=== PATIENT | male | born 1955 | race Caucasian/White ===

== ENCOUNTER 2021-12-07 08:07 | Outpatient (CLI) | payer MEDICARE, SELFPAY ==
[2021-12-07 16:30] LABS: Chloride* 106 mmol/L (96-114)
[2021-12-07 16:31] LABS: Potassium* 4.4 mmol/L (3.6-5.1); Sodium* 136 mmol/L (135-149)
[2021-12-07 16:33] LABS: Blood Urea Nitrogen* 25 mg/dL (7-30); Carbon Dioxide* 24 mmol/L (20-32); Cholesterol* 120 mg/dL (90-199); Creatinine* 1.2 mg/dL (0.5-1.5); Estimated Glomerular Filt Rate 67 ml/min
[2021-12-07 16:34] LABS: Calcium* 9.1 mg/dL (8.4-10.6); Glucose* 97 mg/dL (60-115); HDL Cholesterol* 54 mg/dL (>=40); LDL Cholesterol Calculated 53 mg/dL (<100); Triglycerides* 63 mg/dL (40-149)
[2021-12-07 17:05] LABS: PSA Diagnostic* 8.89 ng/mL (0.10-4.00)
== END 2021-12-07 08:08 | disposition home or self-care (01) ==
PROVIDERS: PCP Family Medicine; Visit Provider Family Medicine
DX: I10 Essential (primary) hypertension (principal); R97.20 Elevated prostate specific antigen [PSA]; Z13.6 Encounter for screening for cardiovascular disorders; Z13.0 Encounter for screening for diseases of the blood and blood-forming organs and certain disorders involving the immune mechanism
CPT/HCPCS: 80048; 80061; 84153

== ENCOUNTER 2022-04-16 16:32 | Emergency (ER) | payer MEDICARE, BC, SELFPAY ==
[2022-04-16] VITALS (17 sets, daily range): BP systolic 123–153; BP diastolic 71–93; PULSE 60–83; RESP 14–20; TEMP 36.7; O2SAT 93–98; BMI 32.3
--- NOTE | 2022-04-16 19:04 | ED.NAVMDI ---
HPI - Nausea/Vomiting/Diarrhea General Date Seen: 04/16/22 Chief complaint: Nausea/Vomiting Stated complaint: Dehydrated Diarrhea Vomiting Time Seen by Provider: 04/16/22 18:58 Source: patient and family Mode of arrival: ambulatory Limitations: no limitations History of Present Illness HPI Narrative: Patient is the 67-year-old gentleman who has been sick with nausea vomiting and diarrhea for the last 4-5 days. He has vomited up twice today, both episodes are associated with coughing. He is not really urinating too according to his who is come with him for the visit. Denies a fever, chills associated with this, maybe is a little bit of low-grade abdominal pain but he says really not that much. Receive the influenza and COVID shot the day before this all started. Previously has had no problem with either of those shots. Has a history of hypertension, has not taken his medications at all for the past 3 days. No other medications took for this, did want me to look at his left great toe which she dropped a louise on 2 weeks ago thinking this may be is infected. No recent antibiotic use. No travel, other family member sick. MD elicited complaint: nausea, vomiting and diarrhea Associated nausea: Yes Related Data Home Medications Medication Instructions Recorded Confirmed aspirin 81 mg tablet,delayed 81 mg PO DAILY 12/07/21 04/16/22 release Previous Rx's Medication Instructions Recorded amlodipine 5 mg tablet 5 mg PO DAILY #90 tabs 12/07/21 lisinopril 40 mg tablet 40 mg PO DAILY #90 tabs 12/07/21 Allergies Allergy/AdvReac Type Severity Reaction Status Date / Time No Known Allergies Allergy Verified 04/16/22 20:35 Review of Systems Status of ROS: Reports: 10 or more systems reviewed and unremarkable except as noted in History and below GI: Reports: nausea PFSH PFSH Surgical History History of left inguinal hernia repair (01/06/10) Social History Smoking Status: Never smoker How often do you have a drink containing alcohol: monthly or less AUDIT-C Alcohol total score: 1 Non-prescribed substance use: denies use Exam Narrative: Exam Narrative: Patient is seen in the triage room, due to the dizziness of the ER, he is sitting in a wheelchair. His pupils are equal round reactive to light his TMs are normal oropharynx is a little bit dry, neck is supple full range of motion with absence of meningismus. He is nontoxic in answer my questions appropriately. 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 [place], no lymphadenopathy anterior posterior chains, chest is good air entry bilaterally with no wheezes or crackles noted heart sounds are normal, S1-S2 no S3-S4 clicks murmurs or gallops, abdomen is soft and obese, there is no tenderness to palpation, bowel sounds are normal, no organomegaly, he has an easily reducible umbilical hernia, his lower extremities appear normal bilaterally with absence of edema, normal cap refill, he is going to lose his left great toenail, as there is the old hematoma underneath it, Const: Vital Signs, click to edit/add: Vital Signs - 24 hr 04/16/22 17:26 04/16/22 18:48 04/16/22 20:31 Temperature 98.0 F Pulse Rate [Pulse Oximeter] 71 83 61 Respiratory Rate 14 20 20 Blood Pressure [Ri ght Upper Arm] 130/85 129/93 H 153/81 H Pulse Oximetry 98 97 97 Oxygen Delivery Me thod Room Air Room Air Room Air Documenting provider has reviewed patient's vital signs: yes Course Consultations Consultation #1: Patient did vomit up some coffee-grounds type emesis, was a very small amount maybe a total of 15 mL. The tells me that she does not think this occurred before but was drinking purple Pedialyte and she could have missed it. This is tested positive on Hemoccult testing. I will give him some Protonix, will do a type and screen, we will give him some more fluids, and he will need to 6 hour hemoglobin, the hospital is full in all the local hospitals around here a full also. This point I do not think it is unreasonable to keep him in the emergency room, and watch him, I have discussed this with the oncoming ER physician who agrees to take over care. In regards to the Tamiflu he is already 3 days in her 72 hours into the illness, given the likelihood this would cause more vomiting, and the fact that he is pretty well out of the window for treatment, I will hold off on giving him this. Time: 20:55 Vital Signs Vital signs: Initial Vital Signs Temperature 98.0 F 04/16/22 17:26 Temperature Source Temporal Artery Scan 04/16/22 17:26 Pulse Rate 71 04/16/22 17:26 Pulse Rhythm 04/16/22 17:26 Respiratory Rate 14 04/16/22 17:26 Blood Pressure 130/85 04/16/22 17:26 Blood Pressure Mean 100 04/16/22 17:26 Blood Pressure Position Sitting 04/16/22 17:26 Pulse Oximetry 98 04/16/22 17:26 Oxygen Delivery Method 04/16/22 17:26 Vital Signs Temperature 98.0 F 04/16/22 17:26 Pulse Rate 71 04/16/22 17:26 Respiratory Rate 14 04/16/22 17:26 Blood Pressure 130/85 04/16/22 17:26 Pulse Oximetry 98 04/16/22 17:26 Oxygen Delivery Method 04/16/22 17:26 Temperature 98.0 F 04/16/22 17:26 Pulse Rate 61 04/16/22 20:31 Respiratory Rate 20 04/16/22 20:31 Blood Pressure 153/81 H 04/16/22 20:31 Pulse Oximetry 97 04/16/22 20:31 Oxygen Delivery Method 04/16/22 20:31 MDM - Nausea/Vomiting/Diarrhea MDM Narrative Medical decision making narrative: Differential diagnosis considered include but not limited to viral gastroenteritis, food poisoning, bowel obstruction, Clostridium difficile, Campylobacter, Shigella, rotavirus, medication side effects, dysentery, diverticulitis, Crohn's disease and colitis Medical Records Attestation: I reviewed the patient's medical records. Lab Data Attestation: I reviewed the patient's lab results. Labs: Lab Results 04/16/22 04/16/22 04/16/22 Range/Units 18:59 19:10 19:10 WBC 5.64 (4.50-11.00) K/uL RBC 6.01 H (4.30-5.90) m/uL Hgb 18.0 H (13.5-17.5) gm/dL Hct 51.6 (37.0-53.0) % MCV 86 (80-100) fL MCH 30 (26-34) pg MCHC 35 (32-36) gm/dL RDW Coeff of Preston 13.1 (11.5-15.5) % Plt Count 226 (140-440) K/uL Neut % (Auto) 79.6 H (42.0-72.0) % Lymph % (Auto) 9.0 L (20-44) % Hendricks % (Auto) 11.2 H (0.0-11.0) % Eos % (Auto) 0.0 (0.0-7.0) % Baso % (Auto) 0.0 (0.0-3.0) % Neut # (Auto) 4.50 (1.7-7.0) K/uL Lymph # (Auto) 0.50 L (0.90-2.90) K/uL Hendricks # (Auto) 0.60 (0.00-0.90) K/UL Eos # (Auto) 0.00 (0.00-0.50) K/uL Baso # (Auto) 0.00 (0.00-0.30) K/uL Abs Immat Gran (auto) 0.01 (0.00-0.30) K/uL Imm/Tot Granulo (auto) 0.2 % Sodium 136 (135-149) mmol/L Potassium 3.9 (3.6-5.1) mmol/L Chloride 101 (96-114) mmol/L Carbon Dioxide 20 (20-32) mmol/L BUN 25 (7-30) mg/dL Creatinine 0.9 (0.5-1.5) mg/dL Estimated Creat Clear 65.57 Estimated GFR 94 ml/min Glucose 169 H (60-115) mg/dL Lactate (0.5-1.9) mmol/L Calcium 8.9 (8.4-10.6) mg/dL C-Reactive Protein 3.8 H (0.5-1.0) mg/dL Procalcitonin 0.25 (<0.50) ng/mL SARS-CoV-2 (PCR) Negative SARS-CoV-2 (Negative) Influenza Type A (PCR) POSITIVE PCR FLU A A (Negative) Influenza Type B (PCR) Negative PCR FLU B (Negative) RSV (PCR) Negative PCR RSV (Negative) 04/16/22 Range/Units 19:10 WBC (4.50-11.00) K/uL RBC (4.30-5.90) m/uL Hgb (13.5-17.5) gm/dL Hct (37.0-53.0) % MCV (80-100) fL MCH (26-34) pg MCHC (32-36) gm/dL RDW Coeff of Preston (11.5-15.5) % Plt Count (140-440) K/uL Neut % (Auto) (42.0-72.0) % Lymph % (Auto) (20-44) % Hendricks % (Auto) (0.0-11.0) % Eos % (Auto) (0.0-7.0) % Baso % (Auto) (0.0-3.0) % Neut # (Auto) (1.7-7.0) K/uL Lymph # (Auto) (0.90-2.90) K/uL Hendricks # (Auto) (0.00-0.90) K/UL Eos # (Auto) (0.00-0.50) K/uL Baso # (Auto) (0.00-0.30) K/uL Abs Immat Gran (auto) (0.00-0.30) K/uL Imm/Tot Granulo (auto) % Sodium (135-149) mmol/L Potassium (3.6-5.1) mmol/L Chloride (96-114) mmol/L Carbon Dioxide (20-32) mmol/L BUN (7-30) mg/dL Creatinine (0.5-1.5) mg/dL Estimated Creat Clear Estimated GFR ml/min Glucose (60-115) mg/dL Lactate 2.0 H (0.5-1.9) mmol/L Calcium (8.4-10.6) mg/dL C-Reactive Protein (0.5-1.0) mg/dL Procalcitonin (<0.50) ng/mL SARS-CoV-2 (PCR) (Negative) Influenza Type A (PCR) (Negative) Influenza Type B (PCR) (Negative) RSV (PCR) (Negative) Imaging Data Chest x-ray: Attestation: I have reviewed the pertinent imaging results. My impression: negative Radiologist's impression: Patient: IRIS COLLINS Facility:?[facility] Patient ID:?[id number] Site Patient ID:?[id number]. Site :?[id number] Study:?XRay Chest 2 VIEW-04/16/2022 7:31:56 PM Ordering Physician:Ernie Church Final Report: INDICATION: Cough and vomiting. TECHNIQUE: Chest 2 view. COMPARISON: None. FINDINGS: Cardiovascular and mediastinum: Heart size and vasculature are normal in caliber and appearance. Lungs and pleural spaces: Lungs are clear. No sign of infiltrate or mass. No sign of pleural effusion. No pneumothorax. Bones and soft tissues: No significant findings. IMPRESSION: No acute or significant findings. Dictated by Ky Smith MD @ 04/16/2022 8:04:21 PM (Electronic Signature) Discharge Plan Discharge Clinical Impression: Influenza A, Acute GI bleeding, Vomiting Patient Disposition: Admitted As Inpatient Condition: Stable Prescriptions: No Action aspirin 81 mg tablet,delayed release (DR/EC) 81 mg PO DAILY amlodipine 5 mg tablet 5 mg PO DAILY Qty: 90 3RF Rx Instructions: Due for recheck and fasting labs. Please schedule appt. lisinopril 40 mg tablet 40 mg PO DAILY Qty: 90 3RF Rx Instructions: Due for recheck and fasting labs. Please schedule appt. Follow Up/Referrals: Edner Garcia MD [Primary Care Provider] -
--- NOTE | 2022-04-16 19:13 | CRLHL7_ITS ---
For Patients: As a result of the Cures Act, medical imaging exams and procedure reports are released immediately into your electronic medical record. You may view this report before your referring provider. If you have questions, please contact your health care provider. INDICATION: Cough and vomiting. TECHNIQUE: Chest 2 view. COMPARISON: None. FINDINGS: Cardiovascular and mediastinum: Heart size and vasculature are normal in caliber and appearance. Lungs and pleural spaces: Lungs are clear. No sign of infiltrate or mass. No sign of pleural effusion. No pneumothorax. Bones and soft tissues: No significant findings. IMPRESSION: No acute or significant findings. Dictated by Ky Smith MD @ 04/16/2022 8:04:21 PM (Electronically Signed)
[2022-04-16] MEDS: 0.9 % SODIUM CHLORIDE 1000 ml 1,000 ML IV ×2 (19:15→20:30)
[2022-04-16] MEDS: ONDANSETRON 2 MG/ML inj 4 MG IVP (19:17)
[2022-04-16 19:18] LABS: Hematocrit 51.6 % (37.0-53.0); Immature Granulocytes Abs Auto 0.01 K/uL (0.00-0.30); Immature Granulocytes Pct Auto 0.2 %; Mean Corpuscular HGB Conc 35 gm/dL (32-36); Mean Corpuscular Hemoglobin 30 pg (26-34); Mean Corpuscular Volume 86 fL (80-100); Monocytes Percent Auto 11.2 % (0.0-11.0); Neutrophils Percent Auto 79.6 % (42.0-72.0); Platelet Count* 226 K/uL (140-440); RDW Coefficient of Variation % 13.1 % (11.5-15.5); Red Blood Count 6.01 m/uL (4.30-5.90); White Blood Count* 5.64 K/uL (4.50-11.00)
[2022-04-16 19:20] LABS: Slide Review Reflex No
--- OUTSIDE RECORDS SUMMARY | 2022-04-16 19:20 | XMS_ITS ---
:1955 Author Care Team Providers Name Role Phone YENIFER LOPEZ MD Primary Care Provider [phone] Allergies Code Code System Name Reaction Severity Status Onset NKDA ? Medications Name Status Start Date Stop Date ? ? amlodipine 5 mg tablet Active ? Not avail able TAKE ONE TABLET BY MOUTH ONCE DAILY aspirin 81 mg capsule Active ? Not availa ble Take 1 capsule every day by oral route. lisinopril 40 mg tablet Active ? Not avai lable TAKE ONE TABLET BY MOUTH ONCE DAILY Problems None recorded. Procedures Date Name Performed by ? 02/11/2022 MRI, Prostate, W/wo Contrast [facility] [address] [place] [address] (Work Place) Results Lab Results Date Name Specimen Result Interpretation Description Value Range Status Address ? ? PSA, Serum or Plasma ? No observation recorded. ? ? ? Past Encounters 02/09/2022 Raised Prostate Specific Antigen Miguel Borjas MD: [address] [facility], [address], [place] [address], Ph. Social History Tobacco Smoking Status Never Smoker Vaccine List None recorded. Plan of Care Reminders Provider Appointments None recorded. ? ? Lab None recorded. ? ? Referral None recorded. ? ? Procedures None recorded. ? ? Surgeries None recorded. ? ? Imaging None recorded. ? ? Vitals Height Weight BMI 5 ft 6 in 200 lbs 32.3 kg/m2
--- OUTSIDE RECORDS SUMMARY | 2022-04-16 19:20 | XMS_ITS | Clinical Summary ---
:1955 Author Organization [facility] [place] [address] Care Team Providers Name Role Phone Rufino Garcia RN Primary Care Provider Allergies Not on File Medications Not on file Active Problems Not on file Encounters Date Type Specialty Care Team Description 02/26/2022 Hospital Encounter Miguel Borjas MD Elevated PSA 02/26/2022 Travel 02/11/2022 Orders Only Miguel Borjas MD <No scans attached> from Last 3 Months Social History Tobacco Use Types Packs/Day Years Used Date Never Assessed Sex Assigned at Date Recorded Not on file Plan of Treatment Health Maintenance Due Date Last Done Comments Tdap 1967 Depression screening for age 12+ 1968 BMI (ht and wt on same day) for age 1003/10/1974 18+ Hepatitis C screening for age 18-79 1974 Tetanus booster 1976 Colonoscopy through age 75 2001 Lipids for age 45-75 2001 Zoster (shingles) series for age 50+ 2006 (1 of 2) Pneumococcal series for age 65+ (1 - 2021 PCV) COVID-19 vaccine series (4 - Booster 07/26/2021 05/31/2021, 10/26/2020, for Pfizer series) 10/05/2020 Influenza for age 65+ 01/21/2022 Procedures Procedure Name Priority Date/Time Associated Diagnosis Comme nts MR PELVIS PROSTATE Routine 02/26/2022 5:05 PM Elevated PSA Res ults for this O CDT procedure are i n the results section. CREATININE,ISTAT Timed 02/26/2022 3:51 PM Resul ts for this CDT procedure are i n the results section. from Last 3 Months Results MR PROSTATE W/WO CONTRAST (02/26/2022 5:05 PM CDT) Anatomical Region Laterality Modality Pelvis Magnetic Resonance Specimen (Source) Anatomical Collection Method Collection Time Re ceived Time Location / / Volume Laterality 03/03/2022 12:32 PM CDT Impressions 03/03/2022 12:32 PM CDT 1. There are no suspicious lesions by MRI. PI-RADS Category = 1. 2. There is no pelvic sidewall or peripr ostatic lymphadenopathy. 3. Normal marrow signal intensity in the included axial skeleton. REFERENCE: PI-RADS Prostate Imaging ? Reporting and Data System 2015 version 2. ACR, the [employer] [place] [employer]. Dictated by Quincy Oliveros MD @ 03/03/2022 12:32:14 PM (Electronically Signed) Narrative 03/03/2022 12:32 PM CDT For Patients: ??As a result of the Cures Act, medical imaging exams and procedure report s are released immediately into your [facility] medical record. ??You may view this report before your referring provider. ??If you have questions, please contact your health care provider. CLINICAL INDICATION: Elevated PSA. TECHNIQUE: MRI of the prostate on a 1.5T machine wi th T1, T2, diffusion-weighted and dynamic post-contrast images obtained. [place] post-processing software used fo r image analysis. COMPARISON: None. FINDINGS: The prostate midline length = 4.0 cm, Wi dth at base = 4.1 cm, mid = 4.5 cm, apex = 3.9 cm. Estimated volume = 40.4 cc. There are no suspicious lesions by MRI. The seminal vesicles are symmetric. The anterior fibromuscular stroma is intact. No findings to indicate extraprostatic extension. There is no pelvic sidewall or periprosthetic lymphadenopathy. Normal m arrow signal intensity in the included axial skeleton. The perivesical fat/urinary bladder are normal. Well- circumscribed and capsulated BPH nodules are present i n the transition zone. Largest measures 18 millimeters on image 17 of series 5. Procedure Note Quincy Oliveros MD - 03/03/2022Forma tting of this note might be different from the original. For Patients: As a result of the [place] Cures Act, medical imaging exams and procedure reports are released immediately into your electronic medical record. You may view this report before your referring provider. If you have questions, please contact [facility] care provider. CLINICAL INDICATION: Elevated PSA. TECHNIQUE: MRI of the prostate on a 1.5T machine wi th T1, T2, diffusion-weighted and dynamic post-contrast images obtained. [place] post-processing software used fo r image analysis. COMPARISON: None. FINDINGS: The prostate midline length = 4.0 cm, Wi dth at base = 4.1 cm, mid = 4.5 cm, apex = 3.9 cm. Estimated volume = 40.4 cc. There are no suspicious lesions by MRI. The seminal vesicles are symmetric. The anterior fibromuscular stroma is intact. No findings to indicate extraprostatic extension. There is no pelvic sidewall or periprosthetic lymphadenopathy. Normal m arrow signal intensity in the included axial skeleton. The perivesical fat/urinary bladder are normal. Well- circumscribed and capsulated BPH nodules are present in the transition zone. Largest measures 18 mil limeters on image 17 of series 5. IMPRESSION: 1. There are no suspicious lesions by MR I. PI-RADS Category = 1. 2. There is no pelvic sidewall or peripr ostatic lymphadenopathy. 3. Normal marrow signal intensity in the included axial skeleton. REFERENCE: PI-RADS Prostate Imaging ? Reporting and Data System 2015 version 2. ACR, the [employer] [place] [employer]. Dictated by Quincy Oliveros MD @ 03/03/2022 12:32:14 PM (Electronically Signed) Miguel Borjas MD MR (ABNORMAL) CREATININE,ISTAT (02/26/2022 3:51 PM CDT) P athologist Signature CREATININE, 1.20 (H) 0.57 - 02/26/2022 [facility] POCT 1.11 mg/dL 5:19 PM [facility] Comment: Caution: Patients taking Hydrox yurea have falsely increased iStat Creatinine results. Verify creatinine results order ing a Creatinine (79704.2) eGFR 67 (L) >90 mL/min/1.73m2 02/26/2022 5:19 PM CDT [facility] Comment: As of 2021, eGFR is calcu lated by the CKD-EPI creatinine equation without race adjustment. eGFR can be inf luenced by muscle mass, exercise, and diet. The reported eGFR is an estimation only and is only applicable if the renal function is stable. Specimen Anatomical Collection Method Collection Time Receive d Time (Source) Location / / Volume Laterality Blood BLOOD SPECIMEN / 02/26/2022 3:51 PM 02/26 5:19 Unknown CDT PM CDT Miguel Borjas MD CHEMISTRY Performing Organization Address City/State/ZIP Code Phon e Number [facility] [place] [address] [place] [address] CENTER from Last 3 Months Insurance Payer Benefit Plan / Subscriber ID Effective Dates Phone Addre ss Type Group MEDICARE PART B MEDICARE PART B [id number] 2021-Prese ATTN: CLAIMS - HB USE ONLY HB ONLY nt [address] [place] [address] MEDICARE PART A MEDICARE PART A [id number] 2021-Prese ATTN: CLAIMS - HB USE ONLY HB ONLY nt [address] [place] [address] BLUE CROSS BLUE CROSS OF [id number] 2021-Prese [address] [place] [address] Care Teams Stitchdown Thread Laster Relationship Specialty Start Date End Date Rufino Garcia, RN PCP - General Registered Nurse 02/26/22 [address] [facility] [place] [address]
--- OUTSIDE RECORDS SUMMARY | 2022-04-16 19:20 | XMS_ITS | Encounter Summary ---
:1955 Author Care Team Providers Name Role Phone Ender Garcia MD Primary Care Provider [phone] Reason for Visit Frequency/Urgency of Urination; Elevated PSA or Prostate Nodule Assessment and Plan 1. Raised prostate specific antigen Discussion Note will set up for MRI prostate and call w ith report. Patient educational handouts: No information available. Plan of Care Reminders Provider Appointments Established 10 on or around 09/06/2022 Miguel guzmán MD Lab None recorded. ? ? Referral None recorded. ? ? Procedures None recorded. ? ? Surgeries None recorded. ? ? Imaging None recorded. ? ? Medications Name Start Date ? ? amlodipine 5 mg tablet ? TAKE ONE TABLET BY MOUTH ONCE DAILY aspirin 81 mg capsule ? Take 1 capsule every day by oral route. lisinopril 40 mg tablet ? TAKE ONE TABLET BY MOUTH ONCE DAILY Medications Administered None recorded. Vitals Height Weight BMI 5 ft 6 in 200 lbs 32.3 kg/m2 Results Lab Results None recorded. Allergies Code Code System Name Reaction Severity Onset NKDA ? ? ? Problems None recorded. Procedures None recorded. Vaccine List None recorded. Social History Tobacco Smoking Status Never Smoker What was the date of your most recent tobacco screening? Family History Relation Problem Onset Age of Age Notes Father No current problems or (No Information) N/A ( No Notes) disability Mother No current problems or (No Information) N/A ( No Notes) disability Functional Status Unknown. Past Encounters 02/09/2022 Raised Prostate Specific Antigen Miguel Borjas MD: [address] [facility], [address], [place] [address], Ph. History of Present Illness Note: <div>sent for eval elevated PSA 4.53 in 2018, 4.8 in 2020 and 8.89 in November. no voiding troubles, no heme/dysuria. no family hx CaP. </div> Review of Systems ? Comprehensive General Adult ROS Reported By: Patient Constitutional: Constitutional: no fever, no chills Eyes: Eyes: no dry eyes, no vision change, no irritation Endocrine: Endocrine: no fatigue, no in creased thirst Cardiovascular: Cardiovascular: no chest johanna n, no palpitations Integumentary: Skin: no rashes, no change i n skin color Respiratory: Respiratory: no wheezing, no cough, no shortness of breath Gastrointestinal: Gastrointestinal: no abdomin al pain, no nausea, no vomiting, no constipation, no GERD Musculoskeletal: Musculoskeletal: no neck johanna n, no back pain Neurologic: Neurologic: no tremor, no di zziness, no numbness, no headaches Genitourinary: Genitourinary: no incontinen ce, no difficulty urinating ENMT: Ears: no ear pain. Mouth/Thr oat: no sore throat Allergic/Immunologic: Allergy/Immunologic: no itch ing, no hives Hematologic/Lymphatic: Hematologic/Lymphatic no swo llen glands, no excessive bleeding Psychiatric: Psych: no hallucinations, (n ormal) sleep disturbances: mismatch of sleep / wake juan daniel edule with lifestyle needs Physical Exam ? General Adult Exam Male Reported By: Patient Constitutional: General Appearance: healthy- appearing. Level of Distress: NAD. Ambulation: ambulating dong lly Lungs: Respiratory effort: no dyspn ea. Auscultation: breath sounds normal Abdomen: Inspection and Palpation: no CVA tenderness Male : Prostate: symmetrical, non-t clovis, smooth / no nodules; 40g size, normal texture Musculoskeletal:: Motor Strength and Tone: nor mal
[2022-04-16 19:33] LABS: Chloride* 101 mmol/L (96-114); Potassium* 3.9 mmol/L (3.6-5.1); Sodium* 136 mmol/L (135-149)
[2022-04-16 19:36] LABS: Blood Urea Nitrogen* 25 mg/dL (7-30); Carbon Dioxide* 20 mmol/L (20-32); Creatinine* 0.9 mg/dL (0.5-1.5); Est. Creatinine Clearance* 65.57; Estimated Glomerular Filt Rate 94 ml/min
[2022-04-16 19:37] LABS: Calcium* 8.9 mg/dL (8.4-10.6); Glucose* 169 mg/dL (60-115)
[2022-04-16 19:39] LABS: C Reactive Protein* 3.8 mg/dL (0.5-1.0)
--- NOTE | 2022-04-16 19:45 | ED.NURSE ---
was retching and had dry heaves. aware that he needs to give a urine sample.
[2022-04-16 19:47] LABS: PCR FLU A POSITIVE PCR FLU A (Negative); PCR FLU B Negative PCR FLU B (Negative); PCR RSV Negative PCR RSV (Negative)
[2022-04-16 19:53] LABS: Procalcitonin* 0.25 ng/mL (<0.50)
[2022-04-16 19:55] LABS: SARS PCR* Negative SARS-CoV-2 (Negative)
--- NOTE | 2022-04-16 20:39 | ED.NURSE ---
was positive for blood in the emesis. gastroccult was done and dr west informed. this was small amt of bloody gastric secretions-brownish color.
[2022-04-16] MEDS: PANTOPRAZOLE SODIUM 40 MG INJ IVP (20:59)
[2022-04-16 21:49] LABS: Appearance Urine Clear (Clear); Bilirubin Urine 1+ (Negative); Blood Urine Negative (Negative); Color Urine Yellow (Yellow); Glucose Urine Negative (Negative); Ketones Urine 4+ (Negative); Leukocyte Esterase Urine Negative (Negative); Nitrite Urine Negative (Negative); Protein Urine 1+ (Negative); Specific Gravity Urine >= 1.030 (1.000-1.030); Urobilinogen Urine 0.2 (0.2-1.0)
[2022-04-16 22:02] LABS: RBC Urine 0-2 (0-2); Squamous Epithelial Cell Urine Few (None-Few); WBC Urine 0-2 (0-5)
[2022-04-16 22:03] LABS: Amorphous Sediment Urine Few; Bacteria Urine Moderate; Mucus Urine Few
--- NOTE | 2022-04-16 22:40 | ED.NURSE ---
will be staying at his bedside tonight. no further vomiting noted.
[2022-04-16] MEDS: LORazepam 2 MG/ML inj 0.5 MG IVP (23:20)
[2022-04-16] MEDS: METOCLOPRAMIDE HCL 10 MG in 0.9 % SODIUM CHLORIDE 100 ml 100 ML 306 MG IVPB (23:21)
[2022-04-16] MEDS: diphenhydrAMINE 50 MG/ML inj 12.5 MG IVP (23:21)
[2022-04-17] VITALS (36 sets, daily range): BP systolic 98–128; BP diastolic 70–95; PULSE 57–71; RESP 14; O2SAT 92–97
--- NOTE | 2022-04-17 06:10 | ED.NURSE ---
pt arrived to bring pt home.
== END 2022-04-17 06:10 | disposition home or self-care (01) ==
PROVIDERS: Emergency Provider Family Medicine; PCP Family Medicine
DX: K92.2 Gastrointestinal hemorrhage, unspecified (principal); J09.X2 Influenza due to identified novel influenza A virus with other respiratory manifestations
CPT/HCPCS: 36415; 71046; 80048; 81001; 83605; 84145; 85025; 86140; 86850; 86900; 86901; 87086; 87502; 87634; 87635; 96365; 96375; 99284; 99285; C9113; J1200; J2060; J2405; J2765; J7030

== ENCOUNTER 2022-08-03 19:54 | Outpatient (REF) | payer MEDICARE, BC, SELFPAY ==
[2022-08-03 21:16] LABS: PSA Diagnostic* 9.06 ng/mL (0.10-4.00)
== END 2022-08-03 19:55 | disposition home or self-care (01) ==
LOC: LAB 19:54
PROVIDERS: PCP Family Medicine; Visit Provider Urology
DX: R97.20 Elevated prostate specific antigen [PSA] (principal)
CPT/HCPCS: 36415; 84153

== ENCOUNTER 2023-06-27 14:48 | Outpatient (CLI) | payer MEDICARE, BC, SELFPAY ==
--- OUTSIDE RECORDS SUMMARY | 2023-06-27 14:51 | XMS_ITS | Clinical Summary ---
Author Name Unknown Organization [facility] Address [place], [place] [address] Care Team Providers Care Exhibit Preparator Name Role Phone Rufino Garcia RN Primary Care Provider [phone] Social History Tobacco Use Types Packs/Day Years Used Date Smoking Tobacco: Never Assessed Sex and Gender Information Value Date Recorded Sex Assigned at Not on file Gender Identity Not on file Sexual Orientation Not on file Plan of Treatment Health Maintenance Due Date Last Done Comments Tdap 1967 Depression screening for age 12+ 1968 BMI (ht and wt on same day) for age 18+ 1974 Hepatitis C screening for age 18-79 1974 Tetanus booster 1976 Colonoscopy through age 75 2001 Lipids for age 45-75 2001 Zoster (shingles) series for age 50+ (1 of 2) 2006 Pneumococcal series for age 65+ (1 of 1 - PCV) 2021 COVID-19 vaccine series (2022-24 season) 2023 05/31/2021, 10/26/2020, 10/05/2020 Influenza for age 65+ 01/21/2023 Care Teams Exhibit Preparator Relationship Specialty Start Date End Date Rufino Garcia, RN [address] [facility] [place] [address] PCP - General Registered Nurse 02/26/22
[2023-06-27 15:18] LABS: Hemoglobin* 16.7 gm/dL (13.5-17.5)
[2023-06-27 22:22] LABS: Chloride* 102 mmol/L (96-114); Potassium* 5.1 mmol/L (3.6-5.1); Sodium* 137 mmol/L (135-149)
[2023-06-27 22:24] LABS: Creatinine* 1.2 mg/dL (0.5-1.5); Estimated Glomerular Filt Rate 66 ml/min
[2023-06-27 22:25] LABS: Anion Gap 10 mEq/L (7-15); Blood Urea Nitrogen* 26 mg/dL (7-30); Calcium* 9.4 mg/dL (8.4-10.6); Carbon Dioxide* 25 mmol/L (20-32); Glucose* 105 mg/dL (60-115)
== END 2023-06-27 14:49 | disposition home or self-care (01) ==
PROVIDERS: PCP Family Medicine; Visit Provider Family Medicine
DX: I10 Essential (primary) hypertension (principal); D75.1 Secondary polycythemia; R97.20 Elevated prostate specific antigen [PSA]; Z82.49 Family history of ischemic heart disease and other diseases of the circulatory system
CPT/HCPCS: 80048; 84153; 85018

== ENCOUNTER 2024-08-28 10:14 | Outpatient (CLI) | payer MEDICARE, BC, SELFPAY | END 2024-08-28 10:15 | disposition home or self-care (01) | PROVIDERS: PCP Family Medicine; Visit Provider Family Medicine | DX: I10 Essential (primary) hypertension (principal); R97.20 Elevated prostate specific antigen [PSA]; Z12.5 Encounter for screening for malignant neoplasm of prostate | CPT/HCPCS: 80048; G0103 ==